=== PATIENT | female | born 1970 | race Caucasian/White ===

== ENCOUNTER 2021-04-12 02:10 | Outpatient (CLI) | payer MEDICAID, SELFPAY ==
--- NOTE | 2021-04-12 | DI.US_ITS ---
Exam(s) US ABDOMEN EXAM: US ABDOMEN CLINICAL HISTORY: EPIGASTRIC PAIN R10.13 TECHNIQUE: Ultrasound of complete upper abdomen performed using standard protocol. COMPARISON: No exams were available for comparison FINDINGS: There is no ascites evident. LIVER: There are no hepatic lesions evident nor obvious dilatation of intrahepatic ducts. GALLBLADDER/BILIARY: There are no gallstones. No gallbladder wall edema nor pericholecystic fluid. The common hepatic duct isnot dilated, measuring 3-4mm at the level of shahab hepatis. PANCREAS: There is no evidence of pancreatic mass nor dilatation of the pancreatic duct. SPLEEN: The spleen is not enlarged and there are no intrasplenic lesions evident. KIDNEYS:Kidneys exhibit normal size with no evidence of solid mass, calculus, nor hydronephrosis. No cortical cysts evident. ABDOMINAL AORTA: There is no evidence of abdominal aortic aneurysm. IVC: Normal diameter where visualized. IMPRESSION: 1. No evidence of cholelithiasis nor dilatation of the biliary tree. 2. No other significant ultrasound findings in the upper abdomen. 3. There is no ascites. DATA REPOSITORY:
== END 2021-04-12 02:30 ==
PROVIDERS: PCP Family Medicine; Visit Provider Naturopath
DX: R10.13 Epigastric pain (principal)
CPT/HCPCS: 76700

== ENCOUNTER 2021-04-12 02:44 | Outpatient (CLI) | payer MEDICAID, SELFPAY ==
[2021-04-12 08:38] LABS: Abs Immature Grans 0.02 10^3/uL (0.0-0.06); Absolute Basophil Count 0.03 10^3/uL (0.0-0.2); Absolute Eosinophil Count 0.15 10^3/uL (0.0-0.7); Absolute Lymphocyte Count 2.01 10^3/uL (1.2-3.4); Absolute Monocyte Count 0.46 10^3/uL (0.1-0.8); Absolute Neutrophil Count 4.97 10^3/uL (1.2-6.7); Basophils % 0.4; HGB 14.4 g/dL (11.2-15.7); Immature Grans % 0.3; Lymphocytes % 26.3; MCH 30.2 pg (27.0-33.0); MCHC 34.3 % (32.0-36.0); MCV 88.1 fL (80-95); Nucleated RBC 0 %; RBC 4.77 10^6/uL (3.93-5.22); RDW 11.9 % (11.7-14.6); RDW-SD 38.4 fL; WBC 7.64 10^3/uL (4.4-10.8)
[2021-04-12 09:29] LABS: Diff Comment Diff Reviewed; RBC Morphology Normal
[2021-04-12 10:15] LABS: Iron 115 ug/dL (50-170); Total Iron Binding Capacity 252 ug/dL (250-450); Transferrin Sat 46 % (15-50)
[2021-04-12 10:30] LABS: Vitamin D 25 Total 70.9 ng/mL (30-100)
[2021-04-12 10:33] LABS: ALT 137 U/L (14-59); AST 54 U/L (15-37); Albumin 3.9 g/dL (3.4-5.0); Alkaline Phosphatase 76 U/L (46-116); Anion Gap 8.6 mmol/L (3-11); BUN 10 mg/dL (7-18); Bilirubin, Total 0.5 mg/dL (0.2-1.0); CO2 30.4 mmol/L (21.0-32.0); CREATININE 0.9 mg/dL (0.55-1.02); Calcium 8.7 mg/dL (8.5-10.1); Calculated LDL 115 mg/dL (<100); Chloride 101 mmol/L (98-107); Cholesterol 180 mg/dL (<200); Ferritin 174 ng/mL (8-252); Glucose 103 mg/dL (74-106); HDL Cholesterol 42 mg/dL (40-60); Potassium 4.1 mmol/L (3.5-5.1); Sodium 140 mmol/L (136-145); TSH 3.45 uIU/mL (0.36-3.74); Total Protein 7.2 g/dL (6.4-8.2); Triglyceride 115 mg/dL (<150); Vitamin B12 698 pg/mL (193-986)
[2021-04-12 10:45] LABS: Folate > 20.0 ng/mL (8.6-20.0)
[2021-04-12 10:54] LABS: Hemoglobin A1C 5.5 % (<5.7)
[2021-04-12 17:23] LABS: CRP, High Sensitivity 7.19 mg/L (See Note)
[2021-04-12 17:38] LABS: T3,Free 3.4 pg/mL (2.8-5.3)
[2021-04-12 17:55] LABS: T3, Total 190 ng/dL (97-169)
[2021-04-12 19:55] LABS: Thyroperoxidase Antibody <28 U/mL (<=60)
[2021-04-12 21:44] LABS: FREE T4 1.13 ng/dL (0.76-1.46)
[2021-04-13 12:28] LABS: Homocysteine 8.7 umol/L (5.0-13.9)
[2021-04-13 14:19] LABS: Lipoprotein (a) 122 nmol/L (<75)
== END 2021-04-12 02:45 | disposition home or self-care (01) ==
LOC: LBO 02:44
PROVIDERS: PCP Family Medicine; Visit Provider Naturopath
DX: R53.83 Other fatigue (principal); E55.9 Vitamin D deficiency, unspecified; Z13.220 Encounter for screening for lipoid disorders; Z82.49 Family history of ischemic heart disease and other diseases of the circulatory system
CPT/HCPCS: 36415; 80053; 80061; 82306; 83090; 83695; 86141; 82607; 82728; 82746; 83036; 83540; 83550; 84439; 84443; 84480; 84481; 85025; 86376